=== PATIENT | male | born 1940 | race Caucasian/White ===

== ENCOUNTER 2016-09-27 14:19 | Emergency (ER) | payer MEDICARE, MEDICAID ==
[2016-09-27 14:19] VITALS: BMI 36.7
[2016-09-27 14:38] VITALS: TEMP 98.6
[2016-09-27 16:07] LABS: BASO % 0.5 % (0.0-2.0); EOS % 0.4 % (0.0-4.0); HEMATOCRIT 39.9 % (35.0-51.0); LYMPH # 0.7 K/uL (1.0-4.3); LYMPH % 16.9 % (20.0-40.0); MEAN CELL VOLUME 83.6 fL (80.0-94.0); MEAN CORPUSCULAR HEMOGLOBIN 27.4 pg (27.0-31.0); MEAN CORPUSCULAR HGB CONC 32.7 g/dL (33.0-37.0); MEAN PLATELET VOLUME 9.6 fL (7.2-11.7); MONO # 0.3 K/uL (0.0-0.8); MONO % 6.7 % (0.0-10.0); WHITE BLOOD COUNT 4.2 K/uL (4.8-10.8)
[2016-09-27 16:12] LABS: CHLORIDE 93 mmol/L (98-107); SODIUM 135 mmol/L (132-148)
[2016-09-27 16:14] LABS: ALB/GLOB RATIO 1.3 (1.0-2.1); AST/SGOT 40 U/L (17-59); BILIRUBIN,TOTAL 0.4 mg/dL (0.2-1.3); BLOOD UREA NITROGEN 17 mg/dL (9-20); CARBON DIOXIDE 28 mmol/L (22-30); GFR AFRICAN-AMERICAN > 60; TOTAL PROTEIN 7.3 g/dL (6.3-8.3)
[2016-09-27 16:15] LABS: ALKALINE PHOSPHATASE 56 U/L (38-126); ALT/SGPT 108 U/L (21-72); CALCIUM 8.8 mg/dl (8.6-10.4); GLUCOSE,RANDOM 101 mg/dL (75-110)
--- NOTE | 2016-09-27 16:37 | CT ---
PROCEDURE: CT Abdomen and Pelvis without intravenous contrast HISTORY: L flank to groin yesterday, h/o renal colic COMPARISON: None. TECHNIQUE: Without contrast. Contrast Dose: Radiation dose: Total exam DLP = 1271 mGy-cm. FINDINGS: LOWER THORAX: Unremarkable. LIVER: Unremarkable. No gross lesion or ductal dilatation. GALLBLADDER AND BILE DUCTS: Unremarkable. PANCREAS: Unremarkable. No gross lesion or ductal dilatation. SPLEEN: Unremarkable. ADRENALS: Unremarkable. No mass. KIDNEYS AND URETERS: Nonobstructing stones are seen in the left kidney. The lower pole stones measure 9 x 14 mm. In the renal pelvis there is a collection of stones measuring 21 mm in length. There is no evidence of hydronephrosis. VASCULATURE: Unremarkable. No aortic aneurysm. BOWEL: Unremarkable. No obstruction. No gross mural thickening. APPENDIX: Unremarkable. Normal appendix. PERITONEUM: Unremarkable. No free fluid. No free air. LYMPH NODES: Unremarkable. No enlarged lymph nodes. BLADDER: Unremarkable. REPRODUCTIVE: Unremarkable. BONES: No acute fracture. OTHER FINDINGS: None. IMPRESSION: Left-sided renal stones. No evidence of hydronephrosis. No evidence of ureteral stone
--- NOTE | 2016-09-27 16:55 | C.PDOC ---
History Of Present Illness 76 y/o male presents to the emergency department complaining of left flank pain that radiates to the groin beginning yesterday. Patient states the pain has since resolved. He admits to history of renal colic and stones on the left side. Patient denies any hematuria, dysuria, vomiting, fever, or other complaints. Time Seen by Provider: 09/27/16 15:27 Chief Complaint (Nursing): Back Pain History Per: Patient History/Exam Limitations: no limitations Onset/Duration Of Symptoms: Days (1) Current Symptoms Are (Timing): Gone Recent travel outside of the [place]: No Past Medical History Reviewed: Historical Data, Nursing Documentation, Vital Signs Vital Signs: Last Vital Signs Temp 98.6 F 09/27/16 14:35 Pulse 89 09/27/16 18:26 Resp 18 09/27/16 18:26 BP 157/93 H 09/27/16 18:26 Pulse Ox 94 L 09/27/16 18:26 - Medical History PMH: COPD, Diabetes, Emphysema, HTN, Kidney Stones Surgical History: No Surg Hx - [facility] Procedures PARTIAL SIALOADENECTOMY (07/10/02) Family History: States: Unknown Family Hx - Social History Hx Tobacco Use: No Hx Alcohol Use: No Hx Substance Use: No - Immunization History Hx Tetanus Toxoid Vaccination: No Hx Influenza Vaccination: No Hx Pneumococcal Vaccination: No Review Of Systems Except As Marked, All Systems Reviewed And Found Negative. Constitutional: Negative for: Fever Gastrointestinal: Negative for: Vomiting Genitourinary: Positive for: Other (left flank pain radiating to the groin). Negative for: Dysuria, Hematuria Physical Exam - Physical Exam Appears: Non-toxic, No Acute Distress Skin: Normal Color, Warm, Dry Head: Atraumatic, Normacephalic Neck: Normal ROM Chest: Symmetrical Cardiovascular: Rhythm Regular Respiratory: Normal Breath Sounds, No Rales, No Rhonchi, No Wheezing Gastrointestinal/Abdominal: Normal Exam, Soft, No Tenderness, Other (obese) Back: Normal Inspection, No CVA Tenderness Extremity: Normal ROM Neurological/Psych: Oriented x3, Normal Speech, Normal Cognition ED Course And Treatment - Laboratory Results Result Diagrams: 09/27/16 16:00 09/27/16 16:00 Lab Interpretation: Normal (UA 4 WBC's) ECG: Interpreted By Me ECG Rhythm: Sinus Rhythm ECG Interpretation: Normal Rate From EC (bpm) O2 Sat by Pulse Oximetry: 96 (ra) Pulse Ox Interpretation: Normal - Radiology CXR: Interpreted by Me CXR Interpretation: Yes: No Acute Disease - Other Rad KUB X-Ray: Viewed By Me, Read By Radiologist (VAMSHI CRENSHAW MD) Interpretation: IMPRESSION: 1. Multiple left renal stones, increased in size and number since the prior examination, the largest in the left upper pole measures 8 mm. Right nephrolithiasis, the largest stone in the lower pole measures about 6 mm. - CT Scan/US CT Abd/Pelvis Other Rad Studies (CT/US): Read By Radiologist (Alexis Woo MD), Radiology Report Reviewed CT/US Interpretation: FINDINGS: LOWER THORAX: Unremarkable. LIVER: Unremarkable. No gross lesion or ductal dilatation. GALLBLADDER AND BILE DUCTS : Unremarkable. PANCREAS: Unremarkable. No gross lesion or ductal dilatation. SPLEEN: Unremarkable. ADRENALS: Unremarkable. No mass. KIDNEYS AND URETERS: Nonobstructing stones are seen in the left kidney. The lower pole stones measure 9 x 14 mm. In the renal pelvis there is a collection of stones measuring 21 mm in length. There is no evidence of hydronephrosis. . VASCULATURE: Unremarkable. No aortic aneurysm. BOWEL: Unremarkable. No obstruction. No gross mural thickening. APPENDIX: Unremarkable. Normal appendix. PERITONEUM: Unremarkable. No free fluid. No free air. LYMPH NODES: Unremarkable. No enlarged lymph nodes. BLADDER: Unremarkable. REPRODUCTIVE : Unremarkable. BONES: No acute fracture. OTHER FINDINGS: None. IMPRESSION : Left-sided renal stones. No evidence of hydronephrosis. No evidence of ureteral stone Reevaluation Time: 17:44 Reassessment Condition: Improved (remains asymptomatic) Medical Decision Making Medical Decision Making: probably a passed L ureteral stone- h/o same. ++ stones in L kidney and dilated L ureter noted. d/w Dr. López, recommends KUB for SWOL then d/c home. Plan: * CT Abd/Pelvis * EKG * CXR * X-Ray, Abdomen * Blood Work * Urinalysis Disposition Doctor Will See Patient In The: Office Counseled Patient/Family Regarding: Studies Performed, Diagnosis - Disposition Referrals: Steve Pop MD [Staff Provider] - Disposition: HOME/ ROUTINE Disposition Time: 17:46 Condition: GOOD Additional Instructions: Huang López para hacer sergey para la semana que viene para considerar sl SWOL- Lithotrypsy. Instructions: Renal Colic (ED) Print Language: AZERBAIJANI - Clinical Impression Clinical Impression: Renal colic on left side - Scribe Statement The provider has reviewed the documentation as recorded by the Scribe (Shaunna Ashby) Provider Attestation: All medical record entries made by the Scribe were at my direction and personally dictated by me. I have reviewed the chart and agree that the record accurately reflects my personal performance of the history, physical exam, medical decision making, and the department course for this patient. I have also personally directed, reviewed, and agree with the discharge instructions and disposition.
[2016-09-27 17:16] LABS: RBC URINE 28 /hpf (0-3); URINE BACTERIA OCC (<OCC); URINE BILIRUBIN NEGATIVE (NEGATIVE); URINE COLOR Amber (YELLOW); URINE GLUCOSE (UA) NORMAL (Normal); URINE KETONE TRACE mg/dL (NEGATIVE); URINE PROTEIN 2+ mg/dL (NEGATIVE); WBC URINE 6 /hpf (0-5)
[2016-09-27 17:24] LABS: URINE BLOOD 3+ (NEGATIVE); URINE LEUKOCYTE ESTERASE 1+ Leu/uL (Negative)
--- NOTE | 2016-09-27 17:33 | RAD ---
PROCEDURE: CHEST RADIOGRAPH, 1 VIEW HISTORY: Abdominal pain COMPARISON: 05/23/2013 FINDINGS: LUNGS: There is mild pulmonary venous congestion. PLEURA: No pneumothorax or pleural fluid seen. CARDIOVASCULAR: There is mild cardiomegaly. There is unfolding of the aorta. Atherosclerotic aortic arch calcifications are present. OSSEOUS STRUCTURES: No significant abnormalities. VISUALIZED UPPER ABDOMEN: Normal. OTHER FINDINGS: None. IMPRESSION: Mild cardiomegaly and pulmonary venous congestion. No lobar pneumonia.
--- NOTE | 2016-09-27 18:24 | RAD ---
HISTORY: KUB for renal stones (1 view standing please) COMPARISON: 02/28/2015 FINDINGS: There are multiple left renal stones, increased in size and number since the prior examination, the largest in the upper pole measures 8 mm. There are also several small right renal stones, the largest in the lower pole measures about 6 mm. BOWEL: Normal. No obstruction. No free air. BONES: Normal. OTHER FINDINGS: None. IMPRESSION: 1. Multiple left renal stones, increased in size and number since the prior examination, the largest in the left upper pole measures 8 mm. Right nephrolithiasis, the largest stone in the lower pole measures about 6 mm.
[2016-09-27 18:26] VITALS: BP 157/93; PULSE 89; RESP 18
[2016-09-27 18:33] VITALS: O2SAT 96
--- NOTE | 2016-10-04 13:35 | CARD ---
APPROVED REPORT EKG Measurement Heart [id number] <Conclusion> Normal sinus rhythm Inferior infarct, age undetermined Abnormal ECG
== END 2016-09-27 18:27 | disposition home or self-care (01) ==
LOC: C.ER 14:19
DX: N20.0 Calculus of kidney (principal); Z87.442 Personal history of urinary calculi

== ENCOUNTER 2018-04-09 09:40 | Day surgery (SDC) | payer MEDICARE, MEDICAID ==
[2018-04-08 08:47] VITALS: BMI 39.9
--- NOTE | 2018-04-09 11:12 | CP.SDSHP ---
Same Day Surgery H & P - History Proposed Procedure: Right parotid mass bx Pre-Op Diagnosis: Parotid mass - Allergies Allergies: Allergies No Known Allergies Allergy (Unverified 06/04/17 10:53) - Impression Impression: US of neck and parotid did not show any lesions > [address] head reports a 2.5 cm right parietal gland lesion. The ENT said this was meant to be a parotid lesion. The right and left parotid glands were scanned and a there are no lesions present fitting the description. An 8 mm right parotid lesion is present. No biopsy performed. Pt. Evaluated Today:Candidate for Anesthesia & Procedure: No Short Stay Discharge - Short Stay Discharge Admitting Diagnosis/Reason for Visit: LOCALIZED SWELLING, MASS AND LUMP, NECK Disposition: HOME/ ROUTINE
--- NOTE | 2018-04-11 11:04 | US ---
Date of service: 04/09/2018 PROCEDURE: HISTORY: RT NECK MASS , COMPARISON: TECHNIQUE: Limited ultrasound right and neck and parotid CT performed for parotid gland FNA. FINDINGS: Limited ultrasound of the right and left parotid gland showed an 8 millimeter right parotid lesion. Patient had a head CT report from outside imaging center that detailed a 2.5 centimeter parietal lesion. Referring into the physician clarify that this was a right parotid mass. Imaging is not available. Ultrasound did not show a right parietal mass fitting description. The subcentimeter lesion is too small to biopsy. IMPRESSION: Sub centimeter right parotid gland lesion too small to biopsy.
== END 2018-04-09 10:55 | disposition home or self-care (01) ==
LOC: C.SPRAD 09:40
PROVIDERS: ATTEND Radiology Vascular & Interventional Radiology
DX: R22.1 Localized swelling, mass and lump, neck (principal); Z53.8 Procedure and treatment not carried out for other reasons

== ENCOUNTER 2018-10-07 12:35 | Emergency (ER) | payer MEDICARE, MEDICAID ==
[2018-10-07 12:35] VITALS: BMI 39.9
[2018-10-07 12:59] VITALS: BP 156/82; PULSE 70; RESP 22; TEMP 97.9; O2SAT 96
[2018-10-07] MEDS ORDERED: Bacitracin 500 Units/gm Oint Foilpak UD TOP ONE (13:31)
--- NOTE | 2018-10-07 13:34 | C.PDOC ---
Time Seen by Provider: 10/07/18 13:14 Chief Complaint (Nursing): Abnormal Skin Integrity History Per: Patient Onset/Duration Of Symptoms: Days (2) Current Symptoms Are (Timing): Still Present Location Of Injury: Left: Hand (Index finger) Quality Of Symptoms: Painful, Swollen Severity: Moderate Additional History Per: Prior Records Past Medical History Reviewed: Historical Data, Nursing Documentation, Vital Signs Vital Signs: Last Vital Signs Temp 97.9 F 10/07/18 12:56 Pulse 70 10/07/18 12:56 Resp 22 10/07/18 12:56 BP 156/82 H 10/07/18 12:56 Pulse Ox 96 10/07/18 12:56 - Medical History PMH: COPD, Diabetes, Emphysema, HTN, Hypercholesterolemia, Kidney Stones, Sleep Apnea (w/ c-pap) - [facility] Procedures PARTIAL SIALOADENECTOMY (07/10/02) Family History: States: Unknown Family Hx - Social History Hx Tobacco Use: No Hx Alcohol Use: No Hx Substance Use: No - Immunization History Hx Tetanus Toxoid Vaccination: No Hx Influenza Vaccination: No Hx Pneumococcal Vaccination: No Review Of Systems Except As Marked, All Systems Reviewed And Found Negative. Constitutional: Negative for: Fever, Weakness Gastrointestinal: Negative for: Nausea, Vomiting Musculoskeletal: Negative for: Neck Pain Neurological: Negative for: Weakness, Numbness Physical Exam - Physical Exam Appears: Non-toxic, No Acute Distress Skin: Normal Color, Warm, Dry Head: Atraumatic Neck: Normal ROM, Supple Extremity: Normal ROM, Capillary Refill (wnl), Other (Paronychia on ulnar side of distal phalanx of left index finger) Pulses: Left Radial: Normal Neurological/Psych: Oriented x3, Normal Motor, Normal Sensation ED Course And Treatment O2 Sat by Pulse Oximetry: 96 Pulse Ox Interpretation: Normal Reassessment Condition: Improved - Incision & Drainage Of Abscess Prep Used: Betadine Procedure: Incised W/Scalpel Blade#: (11), Drained Pus Disposition Counseled Patient/Family Regarding: Diagnosis, Need For Followup, Rx Given - Disposition Referrals: Michael Tobar MD [Staff Provider] - Disposition: HOME/ ROUTINE Disposition Time: 13:35 Condition: IMPROVED Additional Instructions: Follow up with your doctor in 2-3 days for a wound check. Return to the ER if you develop fever, redness or swelling that is spreading to the hand, worsening of symptoms or if you have any other concerns. Prescriptions: Amoxicillin/Clavulanate [Augmentin 875 MG-125 MG] 1 tab PO BID #14 tab Instructions: Paronychia (DC) Forms: [facility] (Mozambican) - Clinical Impression Clinical Impression: Paronychia of finger of left hand
[2018-10-07] MEDS ORDERED: Bacitracin 500 Units/gm Oint Foilpak UD ONE (13:39)
== END 2018-10-07 13:55 | disposition home or self-care (01) ==
LOC: C.ER 12:35
DX: L03.012 Cellulitis of left finger (principal)